=== PATIENT | female | born 1970 | race Caucasian/White ===

== ENCOUNTER → 2024-05-24 | Outpatient (CLI) | payer OTHER ==
--- NOTE | 2024-05-24 23:05 | MR ---
EXAMINATION TYPE: MR knee LT wo con DATE OF EXAM: 05/24/2024 COMPARISON: NONE HISTORY: Left knee pain, medial aspect, S/P trauma 4 mos ago. TECHNIQUE: Multiplanar, multisequence images of the knee is performed without IV contrast. FINDINGS: MEDIAL MENISCUS: Medial extrusion medial meniscus on coronal images. Oblique signal posterior horn ex tends to the inferior articular surface. LATERAL MENISCUS: Anterior and posterior horns are intact without tear. CRUCIATE LIGAMENTS: The anterior and posterior cruciate ligaments are intact and unremarkable. COLLATERAL LIGAMENTS: The medial collateral ligament and lateral collateral ligament complex are inta ct and unremarkable. EXTENSOR MECHANISM: Visualized quadriceps and patellar tendons are intact. EFFUSION: Large size suprapatellar joint effusion. POPLITEAL CYST: Moderate sized popliteal/caraballo cyst measuring 4.8 cm long axis image 25. TRICOMPARTMENT SPACES: Mild to moderate tricompartment joint space loss most prominent medial tibiofe moral and patellofemoral compartments. No significant spurring. 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 Cartilag inous loss medial tibiofemoral compartment including areas of full-thickness loss. BONE MARROW SIGNAL: There is of heterogeneous diminished T1 and increased T2 signal in the distal med ial femoral condyle and to a lesser degree the medial proximal tibia. OTHER: No additional significant abnormality is appreciated. IMPRESSION: 1. Oblique full thickness tear posterior horn medial meniscus. 2. Large-sized suprapatellar joint effusion. 3. Moderate-sized popliteal cyst. 4. Tricompartment degenerative changes with at least moderate to borderline advanced findings medial tibiofemoral compartment noted as detailed above. [facility], , 05/24/2024 11:03 PM
== END | disposition home or self-care (01) ==
LOC: RADMRIMAIN 07:13
PROVIDERS: ATTEND Orthopaedic Surgery